=== PATIENT | female | born 1970 | race Caucasian/White ===

== ENCOUNTER 2019-08-12 09:09 | Day surgery (SDC) | payer OTHER ==
[2019-08-11 17:11] VITALS: BMI 23.7
[2019-08-11 17:33] LABS: Hemoglobin 15.1 g/dL (12.0-16.0); Mean Corpuscular HGB CONC 34.3 g/dL (32.0-36.0); Mean Corpuscular Hemoglobin 33.1 pg (27.0-31.0); Mean Corpuscular Volume 96.4 fL (78.0-98.0); Mean Platelet Volume 7.6 fL (7.4-10.4); Platelet Count 306 thou/uL (130-400); RBC Distribution Width 11.7 % (11.5-14.5); Red Blood Cell (RBC) Count 4.56 mill/uL (4.20-5.40); White Blood Cell (WBC) Count 12.3 thou/uL (4.8-10.8)
--- NOTE | 2019-08-11 20:19 | HP ---
REASON FOR ADMISSION: Total laparoscopic hysterectomy with bilateral salpingectomy. HISTORY OF PRESENT ILLNESS: Ms. Venita Pandya is a 48-year-old, 3, para 2, AB1, x2, who presented to me with abnormal bleeding. She was noted to have an 8 cm vascular submucosal fibroid with a normal CA-125 in [place]. She had negative Pap and negative beta. She desires definitive surgical management. NON CATEGORICAL PRESCHOOL TEACHER HISTORY: As noted. History of cold sores and genital herpes. PAST MEDICAL HISTORY: None. PAST SURGICAL HISTORY: C-sections, breast implants, and tubal ligation. ALLERGIES: ZITHROMAX. MEDICATIONS: Valacyclovir. SOCIAL HISTORY: The patient is a half [id number] smoker. Denies alcohol or IV drug abuse. FAMILY HISTORY: Noncontributory. REVIEW OF SYSTEMS: Noncontributory. PHYSICAL EXAMINATION: VITAL SIGNS: White female, 5 feet 8 inches, 157, BMI 24. Blood pressure 122/72 and pulse 61. HEENT: Within normal limits. LUNGS: Clear to auscultation bilaterally. HEART: Regular rhythm. BREASTS: No masses bilaterally, status post implant. ABDOMEN: Soft and nontender. No rebound or guarding. Vulva without lesions. Vagina without discharge. Cervix nulliparous. Uterus anteverted, approximately 10 weeks size. Adnexa, no masses bilaterally. EXTREMITIES: Without clubbing, cyanosis, or edema. LABORATORY DATA: Pap and EMB are noted. Ultrasound reveals uterus measuring 8.3 x 6.4 cm with a 6 to 5 cm posterior fundal fibroid noted with thin lining. IMPRESSION: Dysfunctional uterine bleeding associated with large vascular fibroid. PLAN: We will proceed with total laparoscopic hysterectomy. We will assess at time of surgery, need for GelPOINT and retrieval bag versus vaginal removal. We will remove both fallopian tubes prophylactically. We will administer appropriate antibiotic and DVT prophylaxis. Job ID: [id number]
[2019-08-12] MEDS ORDERED: Bupivacaine/Epinephrine 0.25% 30 ML VIAL ONE (09:23)
[2019-08-12 09:57] LABS: BHCG - Serum Negative (NEGATIVE); Pregs Control Background? CLEAR/WHITE (CLR/WHITE); Pregs Control Bar Appear? YES (CONTROL BAR)
[2019-08-12] MEDS ORDERED: Famotidine/PF 20 mg/2ml Vial ONE (10:07)
[2019-08-12] MEDS ORDERED: Gabapentin 300 MG CAP ONE (10:07)
[2019-08-12] MEDS ORDERED: CeleCOXIB 100 MG CAP ONE (10:07)
[2019-08-12] MEDS ORDERED: Midazolam HCl 2 mg/2 ml Vial ONE (11:02)
[2019-08-12] MEDS ORDERED: Promethazine HCl 25 MG/ML VIAL ONE (11:02)
[2019-08-12] MEDS ORDERED: Fentanyl 100 MCG/2 ML VIAL ONE (11:02)
[2019-08-12] MEDS ORDERED: Promethazine HCl 25 MG/ML VIAL SLOW IVP PRN (12:55)
[2019-08-12] MEDS ORDERED: Promethazine HCl 25 MG/ML VIAL IM PRN ×2 (12:55→13:40)
[2019-08-12] MEDS ORDERED: Ondansetron HCl/PF 4 MG/2 ML Vial IVP PRN (12:55)
[2019-08-12] MEDS ORDERED: HYDROmorphone 2 MG/ML VIAL SLOW IVP PRN (12:55)
[2019-08-12] MEDS ORDERED: PACU-Morphine 4MG/ML VIAL SLOW IVP PRN (12:55)
[2019-08-12] MEDS ORDERED: HYDROmorphone 0.5 MG/0.5 ML SYRINGE ONE (13:14)
[2019-08-12] MEDS ORDERED: Bisacodyl 10 MG SUPP PR PRN (13:40)
[2019-08-12] MEDS ORDERED: HYDROcodone/Acetaminophen 5/325 mg Tablet PO PRN (13:40)
[2019-08-12] MEDS ORDERED: Ondansetron PF 4 MG/2 ML Vial IVP PRN (13:40)
[2019-08-12] MEDS ORDERED: diphenhydrAMINE 25 MG CAP PO PRN (13:40)
[2019-08-12] MEDS ORDERED: Simethicone Chewable 80 MG TAB PO PRN (13:40)
[2019-08-12] MEDS ORDERED: Zolpidem Tartrate 5 MG TAB PO PRN (13:40)
--- NOTE | 2019-08-12 14:35 | OP ---
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 PROCEDURES PERFORMED: Total laparoscopic hysterectomy with da Micaela bilateral salpingectomy, GelPOINT retrieval bag and morcellation. BANDAGE WINDING MACHINE OPERATOR: Albertina Ventura PA-C ANESTHESIA: General endotracheal. ESTIMATED BLOOD LOSS: Less than 100 mL. COMPLICATIONS: None. DRAINS: Lovelace to gravity. MEDICATIONS: 2 g Ancef preincision. DVT PROPHYLAXIS: SCDs. FINDINGS: 1. Fibroid uterus approximately 500 g with large vascular posterior fundal fibroid. 2. Normal-appearing tubes and ovaries bilaterally. 3. Hemostasis, clear urine. COUNTS: Correct at the end of the procedure. DISPOSITION: Recovery in good condition. DESCRIPTION OF PROCEDURE: After obtaining appropriate informed consent, the patient was taken to the operating room, where general endotracheal anesthesia was achieved without difficulty. The patient was prepped and draped in dorsal lithotomy position in Mark stirrups. Sliding speculum was placed in the vagina. Cervix identified and grasped with single-toothed tenaculum. Uterus sounded to 8 cm and a 3.5 cm vaginal mixer operator PRABHA with a 6 cm obturator was placed without difficulty. Lovelace catheter placed in the bladder, drained of 10 mL of clear urine and 60 mL syringe placed on it. [place] Man changed his clothes, turned attention to abdominal portion of the procedure. 5 mL of Marcaine injected at the superior aspect of the umbilicus. Veress needle placed inside the abdominal cavity. Saline drop test insufflation carried out with carbon dioxide to maximum pressure of 15, volume approximately 3.5 L. Once this was achieved, a 12 mm Kai trocar was introduced and the balloon inflated. Findings as noted in the operative findings were noted. Assessing the patient's pelvis with no previous vaginal deliveries and the broadness of the uterus at its fundus, decision was made to go ahead and proceed with a GelPOINT retrieval and morcellation through a supraumbilical incision. Right and left lateral trocars lateral to the epigastric vessels were placed under direct visualization. An 11 mm assistant shift supervisor port in the right upper quadrant was placed. Skin incision at the level of the supraumbilical incision was extended to 3 cm and cut down to the fascia. About a 3 cm incision was made in the fascia and the mini Ameya O was placed inside. GelPOINT was placed on top of this and the da Micaela robot was docked. Monopolar scissors were noted in the right hand and bipolar fenestrated forceps in the left. The mesosalpinx on the left fallopian tube was coagulated and transected and amputated retrieving the specimen. The utero-ovarian was quite dilated and had varicosities associated with the patient's fibroids on the left and this was coagulated and transected through the broad, the round, and down the level of the internal cervical os. Vesicouterine peritoneum was noted to be fairly densely scarred and incised anteriorly and dissected off the lower uterine segment, cervix and upper vagina. The bladder was backfilled to make sure that the bladder was not involved in the dissection down and the bladder was noted to be well away from the apex of the vagina. Skeletonization of the uterine vessels on the left was carried out and these were coagulated and transected. Attention was turned to the right where identical procedure was carried out again removing the fallopian tube, coagulating and transecting the utero-ovarian, the broad, the round, and down the level of the internal cervical os, again completing the incision of the vesicouterine peritoneum and dissecting off the cervix and upper vagina. Skeletonization of the uterine vessels on this side was carried out and these were coagulated and transected. Ureters were identified and noted to be well lateral to the pedicles on both sites. Once the uterine vessels were then cut off, the vagina was entered anteriorly at 12 o'clock and excision extended from 12 o'clock to 3 o'clock and 12 o'clock to 9 o'clock, and then from 6 o'clock to 9 o'clock, and 6 o'clock to 3 o'clock amputating the specimen. The specimen was pulled off the PRABHA manipulator and the vagina obstructed with the balloon off the PRABHA manipulator to maintain pneumoperitoneum. Inspection of the vaginal cuff revealed there to be good hemostasis. This was closed using a running continuous 0 PDS suture lock suture from right to left and back to right, taking care to avoid injury to the bladder with closure. After this was carried out, suction irrigation was carried out. No bleeding was noted from any pedicles and Tisseel was placed across all the surgical pedicles. The retrieval bag was retrieved from the patient's right upper quadrant and pulled into the pelvis. The stay sutures keeping it closed were removed and the uterus was placed inside of it. Retrieval loop was pulled through the GelPOINT and the da Micaela was then undocked after removing the instruments. Retrieval bag was pulled through the Ameya O and the specimen was morcellated in the usual manner particularly to avoid trauma to the viscera. Once the specimen was completely removed, the retrieval bag and GelPOINT were removed. The fascia was identified with 2 [place] and the fascia at the level of the GelPOINT/mini Ameya O was closed using interrupted horizontal mattresses of 0 PDS x4. Good reapproximation of the fascia was noted. The skin was reapproximated x4 using 4-0 Monocryl and Dermabond. The vagina was inspected and noted to be intact and dry and the patient was awakened, extubated and taken to recovery room in good condition. Job ID: [id number]
[2019-08-12] MEDS: Morphine 4 MG/ML VIAL SLOW IVP PRN (16:07)
[2019-08-12] MEDS: Sodium Chloride 0.9% 1,000 ML IV SCH ×3 (16:10→22:08)
[2019-08-12] MEDS ORDERED: Rocuronium Bromide 10 MG/ML (10ML VIAL) ONE (16:31)
[2019-08-12] MEDS ORDERED: Dexamethasone 20 MG/5 ML VIAL ONE (16:31)
[2019-08-12] MEDS ORDERED: Ondansetron PF 4 MG/2 ML Vial ONE (16:31)
[2019-08-12] MEDS ORDERED: Ketorolac Tromethamine 30 MG/ML VIAL ONE (16:31)
[2019-08-12] MEDS ORDERED: Glycopyrrolate 0.2 MG/ML 5 ML SYRINGE ONE (16:31)
[2019-08-12] MEDS ORDERED: ePHEDrine 50 MG/ML VIAL ONE (16:31)
[2019-08-12] MEDS ORDERED: Lidocaine 1% PF 5 ML VIAL ONE (16:31)
[2019-08-12] MEDS ORDERED: PROPOFOL 200 MG/20 ML VIAL ONE (16:31)
[2019-08-12] MEDS ORDERED: traMADol HCl 50 MG TAB PO PRN ×2 (16:50)
[2019-08-12] MEDS: Acetaminophen 1,000 MG in Premix Bag 1 BAG IVPB SCH ×2 (18:16→23:43)
[2019-08-12] MEDS ORDERED: CeleCOXIB 100 MG CAP PO SCH (21:00)
[2019-08-13] MEDS: Morphine 4 MG/ML VIAL SLOW IVP PRN (03:31)
[2019-08-13] MEDS: Acetaminophen 1,000 MG in Premix Bag 1 BAG IVPB SCH (05:53)
[2019-08-13] MEDS: Sodium Chloride 0.9% 1,000 ML IV SCH (05:54)
[2019-08-13 05:57] LABS: Hemoglobin 12.4 g/dL (12.0-16.0); Mean Corpuscular HGB CONC 32.2 g/dL (32.0-36.0); Mean Corpuscular Hemoglobin 31.4 pg (27.0-31.0); Mean Corpuscular Volume 97.3 fL (78.0-98.0); Mean Platelet Volume 7.9 fL (7.4-10.4); Platelet Count 246 thou/uL (130-400); RBC Distribution Width 11.6 % (11.5-14.5); Red Blood Cell (RBC) Count 3.95 mill/uL (4.20-5.40); White Blood Cell (WBC) Count 13.2 thou/uL (4.8-10.8)
[2019-08-13] MEDS ORDERED: Ibuprofen 800 MG TAB PO SCH (06:00)
[2019-08-13] MEDS ORDERED: Multivit, Therapeutic 1 TAB PO SCH (09:00)
--- NOTE | 2019-08-13 10:26 | DIS ---
DATE OF ADMISSION: 08/12/2019 DATE OF DISCHARGE: 08/13/2019 PRINCIPAL IN-HOSPITAL PROCEDURE: Total laparoscopic hysterectomy with bilateral salpingectomy, da Micaela robot assist, extracorporeal morcellation. SUMMARY OF HOSPITAL COURSE: The patient underwent the aforementioned procedure on the at noon. She had minimal blood loss with an unremarkable postoperative course. Hematocrit dropped from 44% to 38.4% postoperatively. PHYSICAL EXAMINATION: VITAL SIGNS: Stable. Temperature 98.4, pulse 57, respirations 20, and blood pressure 116/55. Urine output of 900 mL via Lovelace afternoon postoperatively and voiding with ease at the time of discharge. LUNGS: Clear to auscultation bilaterally. HEART: Regular rate and rhythm. ABDOMEN: Soft and nontender. All incisions are intact and dry. Her perineum is dry. EXTREMITIES: Without clubbing, cyanosis, or edema. IMPRESSION: Doing well less than 24 hours status post total laparoscopic hysterectomy, bilateral salpingectomy. Pathology pending at this time. PLAN: Discharge home. The patient has Flushing and ibuprofen already sent in to her pharmacy by my office. The patient has scheduled followup in 6 weeks at [facility] [place]. Job ID: [id number]
[2019-08-13 11:25] VITALS: BP 149/72; TEMP 96.8
== END 2019-08-13 11:41 | disposition home or self-care (01) ==
LOC: SDC 09:09 → 3SE 13:41 → SDC 08-13 11:41
PROVIDERS: ATTEND Obstetrics & Gynecology
PROC: 0UT94ZZ Resection of Uterus, Percutaneous Endoscopic Approach (ICD-10-PCS; principal; 2019-08-12)
PROC: 0UT74ZZ Resection of Bilateral Fallopian Tubes, Percutaneous Endoscopic Approach (ICD-10-PCS; principal; 2019-08-12)
PROC: 0UT24ZZ Resection of Bilateral Ovaries, Percutaneous Endoscopic Approach (ICD-10-PCS; principal; 2019-08-12)
DX: D25.0 Submucous leiomyoma of uterus (principal); N72 Inflammatory disease of cervix uteri; N83.8 Other noninflammatory disorders of ovary, fallopian tube and broad ligament; N80.0 Endometriosis of uterus; F17.210 Nicotine dependence, cigarettes, uncomplicated; Z88.1 Allergy status to other antibiotic agents
CPT/HCPCS: 36415; 84703; 85027; 86850; 86900; 86901; 88307; J0131; J0690; J1170; J2250; J2270; J2550; J3010; S0028

== ENCOUNTER 2022-09-21 11:10 | Day surgery (SDC) | payer BC ==
[2022-09-20 12:32] VITALS: BMI 27.9
[2022-09-21] MEDS ORDERED: Midazolam HCl 2 mg/2 ml Vial ONE (12:45)
[2022-09-21] MEDS ORDERED: PROPOFOL 200 MG/20 ML VIAL ONE (13:15)
[2022-09-21] MEDS ORDERED: Dexamethasone 20 MG/5 ML VIAL ONE (13:15)
[2022-09-21] MEDS ORDERED: ePHEDrine 50 MG/ML VIAL ONE (13:15)
[2022-09-21] MEDS ORDERED: Ondansetron PF 4 MG/2 ML Vial ONE (13:15)
[2022-09-21] MEDS ORDERED: FENTANYL 50 MCG/ML 1 ML VIAL ONE (14:45)
[2022-09-21] MEDS ORDERED: Promethazine HCl 25 MG/ML VIAL ONE (15:50)
[2022-09-21] MEDS ORDERED: HYDROcodone/Acetaminophen 5/325 mg Tablet ONE (16:04)
== END 2022-09-21 17:18 | disposition home or self-care (01) ==
LOC: MRI 11:10
DX: M79.642 Pain in left hand (principal); M25.571 Pain in right ankle and joints of right foot; M79.641 Pain in right hand; M25.572 Pain in left ankle and joints of left foot; M25.561 Pain in right knee; F40.240 Claustrophobia; K21.9 Gastro-esophageal reflux disease without esophagitis; M06.9 Rheumatoid arthritis, unspecified; Z87.891 Personal history of nicotine dependence; Z88.1 Allergy status to other antibiotic agents
CPT/HCPCS: J2250; J2550; J3010